=== PATIENT | female | born 1980 | race African-American/Black ===

== ENCOUNTER 2017-06-23 05:36 | Emergency (ER) | payer SELFPAY ==
[~2017-06-23] VITALS: Ht 157.5 cm; Wt 68.5 kg
[2017-06-23 09:00] VITALS: BP 188/122
== END 2017-06-23 09:55 | disposition left against medical advice (07) ==
LOC: ER 05:47
DX: Z00.8 Encounter for other general examination (principal); Z53.21 Procedure and treatment not carried out due to patient leaving prior to being seen by health care provider